=== PATIENT | female | born 1955 | race Caucasian/White ===

== ENCOUNTER → 2017-02-06 | Outpatient (CLI) | payer BC, OTHER ==
--- NOTE | 2017-02-06 16:57 | RAD ---
Indication right leg pain for a few weeks. Grayscale color Doppler and spectral imaging was performed. Examination was targeted to the veins of the right lower extremity. The common femoral, femoral and popliteal vessels demonstrate normal flow compressibility and augmentation. No thrombus is seen. Those calf veins which were seen appeared unremarkable. The left common femoral vein appeared normal. IMPRESSION: Negative right lower extremity venous analysis for DVT
== END | disposition home or self-care (01) ==
LOC: US 15:53
PROVIDERS: ATTEND Nurse Practitioner Gerontology
DX: M79.604 Pain in right leg (principal); M79.89 Other specified soft tissue disorders
CPT/HCPCS: 93971

== ENCOUNTER → 2017-08-01 | Outpatient (CLI) | payer BC, OTHER ==
--- NOTE | 2017-08-01 10:52 | RAD ---
Chest, 2 views, 08/01/2017: History: Chest congestion Comparison is made to a study from 02/20/2016. The heart size is normal. There is a retrocardiac mass in the midline compatible with a moderate-sized hiatal hernia. There is calcific plaquing of the aorta. No pulmonary infiltrate is seen. There is no evidence of pleural fluid. Mild spurring is present in the spine. IMPRESSION: 1. Hiatal hernia. 2. No acute cardiopulmonary abnormality is detected.
== END | disposition home or self-care (01) ==
LOC: PMG 08:03
PROVIDERS: ATTEND Physician Assistant Medical
DX: R09.89 Other specified symptoms and signs involving the circulatory and respiratory systems (principal); K44.9 Diaphragmatic hernia without obstruction or gangrene
CPT/HCPCS: 71046

== ENCOUNTER → 2018-04-17 | Outpatient (CLI) | payer BC, OTHER ==
[~2018-04-17] MED LIST: IOHEXOL 240 MG/ML 50ML VIAL. ONE
[2018-04-17] MEDS: IOHEXOL 240 MG/ML 50ML VIAL. PO ONE (09:35)
[2018-04-17] MEDS: IOHEXOL 300 MG/ML 75 ML VIAL. IV ONE (09:35)
--- NOTE | 2018-04-17 11:45 | RAD ---
EXAM: CT Chest, Abdomen and Pelvis with IV contrast CLINICAL HISTORY: Fatigue, shakes, chills, elevated wbc and rbc. hx follicular lymphoma 5 yrs ago COMPARISON: None available TECHNIQUE: Helical CT of the chest, abdomen and pelvis was performed following the administration of intravenous contrast. Oral contrast was administered. Axial, coronal and sagittal reformatted images were generated. ---PQRS compliance statement - One or more of the following individualized dose reduction techniques were utilized for this study: 1. Automated exposure control 2. Adjustment of the mA and/or kV according to patient size 3. Use of iterative reconstruction technique--- FINDINGS: Chest: The heart is not enlarged. No pericardial effusion. Although a few mildly prominent mediastinal lymph nodes are seen, no lymphadenopathy by size criteria. No axillary or hilar lymphadenopathy is seen. Moderate sized hiatal hernia. Diffuse distal esophageal wall thickening nonspecific but may be seen with esophagitis. No pleural effusion or pneumothorax. Minimal groundglass opacity is seen along the posterior lateral right eighth rib in the region of fracture described below. This may represent a contusion. Abdomen and Pelvis: No focal liver lesion. High density material layering dependently within the gallbladder likely sludge. No biliary ductal dilatation. Spleen is unremarkable. Adrenal glands are normal. Pancreas is unremarkable. Symmetric nephrograms. Bilateral renal cystic lesions are seen. Additional smaller hypodense bilateral renal lesions are too small to characterize. No hydronephrosis or hydroureter. Appendix is normal. Moderate colonic stool content is seen. Oral contrast material seen to the level of the sigmoid. A 2.5 x 1.7 cm mesenteric mass is seen (series 5 image 83) which may represent an enlarged lymph node. Additional smaller satellite nodules are seen, for example a 1.6 x 1 cm nodule (series 5 image 86) is seen inferior to the aforementioned lesion. Within the right lower mesentery, there is a 2.7 x 2.4 cm nodular lesion, also suspected enlarged lymph node. Mesenteric infiltration is seen with fascial thickening. No retroperitoneal or iliac chain lymphadenopathy. Bones: Subacute posterolateral right eighth rib fracture is seen with associated calcification and subjacent parenchymal groundglass opacity, likely contusion. Multilevel degenerative changes of the spine are seen. IMPRESSION: 1. There are 2 prominent mesenteric masses within the abdomen, with several smaller adjacent satellite nodules and fascial thickening/scarring. These mesenteric masses may represent enlarged, morphologically abnormal lymph nodes, which can be seen with clinically provided history of lymphoma. 2. Moderate-sized hiatal hernia. Associated esophageal thickening may be seen with esophagitis. 3. No thoracic lymphadenopathy. 4. Posterior lateral right eighth rib fracture is subacute with associated parenchymal lung opacities, likely contusion. Electronically signed by: Valeriy Aleman MD (04/17/2018 11:41 AM) [facility]
== END | disposition home or self-care (01) ==
LOC: CT 08:08
PROVIDERS: ATTEND Internal Medicine Hematology & Oncology
DX: S22.31XA Fracture of one rib, right side, initial encounter for closed fracture (principal); K44.9 Diaphragmatic hernia without obstruction or gangrene; N28.89 Other specified disorders of kidney and ureter; R91.8 Other nonspecific abnormal finding of lung field; Z85.79 Personal history of other malignant neoplasms of lymphoid, hematopoietic and related tissues; X58.XXXA Exposure to other specified factors, initial encounter; Y93.89 Activity, other specified; Y92.89 Other specified places as the place of occurrence of the external cause; Y99.8 Other external cause status
CPT/HCPCS: 71260; 74177; Q9966; Q9967

== ENCOUNTER → 2018-11-09 | Outpatient (CLI) | payer OTHER ==
--- NOTE | 2018-11-09 13:51 | RAD ---
3 view sinus series Clinical indications: Sinusitis. Pain mostly on the right maxillary side. FINDINGS: Maxillary and ethmoid and frontal and sphenoid sinuses are clear. No air-fluid levels are evident. IMPRESSION: No sinusitis. Electronically signed by: Franki Ahmadi MD (11/09/2018 1:48 PM) [place] [id number]
== END | disposition home or self-care (01) ==
LOC: PMG 09:38
PROVIDERS: ATTEND Physician Assistant Medical
DX: J32.9 Chronic sinusitis, unspecified (principal)
CPT/HCPCS: 70220

== ENCOUNTER → 2020-10-09 | Outpatient (CLI) | payer OTHER ==
--- NOTE | 2020-10-09 12:26 | RAD ---
Right knee 3 views. HISTORY: Right knee pain previous knee replacement in 2018 3 views were taken of the right knee. There is a total joint prosthesis in place. There is no acute f racture. There is a calcification superior to the patella could be dystrophic calcification or old te ndinitis. IMPRESSION: 1. Total joint prosthesis in place. 2. No acute fracture. Electronically signed by: Cipriano Hobbs MD (10/09/2020 12:23 PM) [id number]
== END ==
LOC: RAD 11:49
PROVIDERS: ATTEND Physician Assistant Medical
DX: M25.561 Pain in right knee (principal); Z96.651 Presence of right artificial knee joint
CPT/HCPCS: 73562

== ENCOUNTER 2021-04-24 04:00 | Emergency (ER) | payer OTHER ==
[~2021-04-24] VITALS: Ht 162.6 cm; Wt 85.6 kg
--- NOTE | 2021-04-24 04:43 | PHYS DOC ---
General Adult EDM: Chief Complaint: ASTHMA HPI: HPI: Patient is a 65-year-old female coming in for asthma. Patient states that she has been having difficulty with her asthma for the last 4 weeks. Has seen her primary care provider multiple times. States that she had been diagnosed with ear infection and take antibiotics, had presented for sore throat and had negative strep swab. Patient states she has had lots of congestion despite taking [id number]-[id number]. States she was told that the sore throat was secondary to postnasal drip. Denies any fevers. Use her nebulizer treatment about 2 hours prior to arrival, but states that her medications for are possibly outdated. Has not had any steroids for about 4 weeks, at that time was given 5 days of 20 mg prednisone. Review of Systems: Review of Systems: All other systems within normal limits except for as noted in the HPI Allergies: Allergies: Allergies Coded Allergies Type Severity Reaction Last Updated Verified No Known Drug Allergies 04/24/21 No Physical Exam: PE: Constitutional: Well developed, well nourished, no acute distress, non-toxic appearance. [] HENT: Normocephalic, atraumatic, bilateral external ears normal, nose normal. [] Eyes: PERRLA, conjunctiva normal, no discharge. [] Neck: No rigidity, supple, no stridor. [] Cardiovascular: Regular rate and rhythm, brisk cap refill [] Lungs & Thorax: Non labored symmetric respirations, no tachypnea or respiratory distress [] Abdomen: Soft, nondistended. Skin: Warm, dry, no erythema, no rash. [] Back: Unremarkable Extremities: No deformities, range of motion grossly intact, no lower extremity edema [] Neurologic: Alert and oriented X 3, no focal deficits noted. [] Psychologic: Affect normal, judgement normal, mood normal. [] Current Patient Data: Vital Signs: Vital Signs Date Time Temp Pulse Resp B/P (MAP) Pulse Ox O2 Delivery O2 Flow Rate FiO2 04/24/21 04:15 98.3 101 22 121/70 (87) 97 Room Air EKG: EKG: [] Radiology/Procedures: Radiology/Procedures: FEN opacities in left lower lobe, will treat as pneumonia since patient is not getting better, formal x-ray read pending [] Heart Score: C/O Chest Pain: No Risk Factors: Risk Factors: DM, Current or recent (<one month) smoker, HTN, HLP, family history of CAD, obesity. Risk Scores: Score 0 - 3: 2.5% MACE over next 6 weeks - Discharge Home Score 4 - 6: 20.3% MACE over next 6 weeks - Admit for Clinical Observation Score 7 - 10: 72.7% MACE over next 6 weeks - Early Invasive Strategies Course & Med Decision Making: Course & Med Decision Making Pertinent Labs and Imaging studies reviewed. (See chart for details) [] Dragon Disclaimer: Dragon Disclaimer: This electronic medical record was generated, in whole or in part, using a voice recognition dictation system. Departure Departure: Impression: Primary Impression: Asthma exacerbation Disposition: HOME / SELF CARE / HOMELESS Condition: STABLE Referrals: LANEY CAMPBELL MD (PCP) Patient Instructions: Asthma, Adult Scripts Azelastine Hcl (AZELASTINE HCL) 137 Mcg/0.137 Ml [place].pump 2 SPR NS BID for congestion for 30 Days, #30 ML 0 Refills Prov: ABNER BULLOCK MD 04/24/21 Prednisone (PREDNISONE) 50 Mg Tablet 1 TAB PO DAILY for steroid for 4 Days, #4 TAB You received this medication in the emergency room today. You will starting your next dose tomorrow. Prov: ABNER BULLOCK MD 04/24/21 Amoxicillin/Potassium Clav (AUGMENTIN 875-125 TABLET) 1 Each Tablet 1 TAB PO BID for antibiotic for 7 Days, #14 TAB 0 Refills Prov: ABNER BULLOCK MD 04/24/21 Ipratropium/Albuterol Sulfate (DUONEB 0.5-3(2.5) MG/3 ML) 3 Ml Ampul.neb 3 ML NEB QID PRN for WHEEZING for 30 Days, #120 EACH Prov: ABNER BULLOCK MD 04/24/21 Albuterol Sulfate (PROAIR HFA INHALER) 8.5 Gm Hfa.aer.ad 2 PUFF IH PRN Q4-6HRS PRN for wheezing for 21 Days, #1 INHALER 0 Refills Prov: ABNER BULLOCK MD 04/24/21 ABNER BULLOCK MD Apr 24, 2021 04:43
[2021-04-24] MEDS ORDERED: IPRATRPIUM/ALBUTEROL 0.5/2.5MG 3 ML NEBU. NEB ONE (04:45)
[2021-04-24] MEDS ORDERED: predniSONE 20 MG TABLET PO ONE (04:45)
--- NOTE | 2021-04-24 05:28 | RAD ---
PA and lateral chest x-ray HISTORY: Asthma and cough. COMPARISON: Chest x-ray August 01, 2016. Heart size normal. Right jugular port catheter tip region atriocaval junction. There is a hiatal jazzy ia of the upper stomach within the lower chest. Mild linear atelectasis or scarring left lung base. T he right lung is clear. No pleural effusions. Old right rib deformity stable. IMPRESSION: Linear atelectasis or scarring at the left lung base. Hiatal hernia of the upper stomach. Electronically signed by: Abdoulaye Delarosa MD (04/24/2021 5:26 AM) [facility]
[2021-04-24] MEDS ORDERED: AZEL137S3 NS (05:42)
[2021-04-24] MEDS ORDERED: PRED50TA PO (05:42)
[2021-04-24] MEDS ORDERED: ALBU2.5V8 IH (05:42)
[2021-04-24] MEDS ORDERED: AMOX1TAB61 PO (05:42)
[2021-04-24] MEDS ORDERED: IPRA3AMP29 NEB (05:42)
[2021-04-24 05:50] VITALS: BP 123/84
== END 2021-04-24 05:55 | disposition home or self-care (01) ==
LOC: ER 04:00
DX: J45.901 Unspecified asthma with (acute) exacerbation (principal)
CPT/HCPCS: 71046; 94640; 99283; J7512